=== PATIENT | male | born 1985 | race African-American/Black ===

== ENCOUNTER 2017-04-06 04:23 | Emergency (ER) | payer OTHER, MEDICAID ==
[~2017-04-06] VITALS: Ht 182.9 cm; Wt 72.6 kg
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
--- NOTE | 2017-04-06 04:30 | NUR ---
18G RIGHT AC IV STARTED, BLOOD SAMPLE OBTAINED AND SENT TO LAB
--- NOTE | 2017-04-06 04:36 | NUR ---
ADMIN 1000ML NS ORDERED BY MD PATEL
[2017-04-06 04:46] LABS: BASOPHILS % (AUTO) 0.7 % (0.0-2.0); EOSINOPHILS # (AUTO) 0.2 /CMM (0.0-0.7); EOSINOPHILS % (AUTO) 3.7 % (0.0-6.0); HEMATOCRIT 39 % (39-51); HEMOGLOBIN 12.8 g/dL (13.5-17.5); LYMPHOCYTES # (AUTO) 2.3 /CMM (0.8-4.8); MEAN CORPUSCULAR HEMOGLOBIN 30 PG (26.0-33.0); MEAN CORPUSCULAR HGB CONC 33 g/dl (31.0-36.0); MEAN CORPUSCULAR VOLUME 90 fL (80-96); MONOCYTES # (AUTO) 0.4 /CMM (0.1-1.30); MONOCYTES % (AUTO) 8.4 % (2.0-12.0); NEUTROPHILS # (AUTO) 1.9 /CMM (1.8-8.9); NEUTROPHILS % (AUTO) 39.2 % (43.0-81.0); PLATELET COUNT (AUTO) 196 /CMM (150-450); RDW COEFFICIENT OF VARIATION 14.1 (11.5-15.0); RED BLOOD CELL COUNT(AUTO) 4.33 MIL/uL (4.5-6.0); WHITE BLOOD COUNT (AUTO) 4.8 K/uL (4.3-11.0)
[2017-04-06 04:50] LABS: APPEARANCE,URINE CLEAR (CLEAR); BILIRUBIN,URINE NEGATIVE (NEGATIVE); BLOOD, URINE NEGATIVE Ery/uL (NEGATIVE); COLOR,URINE YELLOW (YELLOW); KETONES,URINE NEGATIVE (NEGATIVE); LEUKOCYTE ESTERASE ,URINE NEGATIVE (NEGATIVE); NITRITE, URINE NEGATIVE (NEGATIVE); PH,URINE 5.5 (5.0-8.0); PROTEIN,URINE NEGATIVE (NEGATIVE); UGLUCOSE NEGATIVE (NEGATIVE); UROBILINOGEN,URINE 0.2 EU/dL (0.2)
[2017-04-06 04:56] LABS: CALCIUM, SERUM 8.1 mg/dL (8.5-10.1); CREATININE 0.8 mg/dL (0.6-1.3); POTASSIUM 3.6 mmol/L (3.5-5.1)
[2017-04-06 05:03] LABS: ALBUMIN 3.6 g/dL (3.4-5.0); BILIRUBIN,DIRECT 0.1 mg/dL (0.0-0.2); BILIRUBIN,TOTAL 0.3 mg/dL (0.2-1.0); SALICYLATE 1.3 mg/dL (2.8-20.0); TOTAL PROTEIN, SERUM 7.1 g/dL (6.4-8.2)
[2017-04-06] MEDS ORDERED: IV NS 0.9% 1,000 ML BAG IV ONE (05:30)
--- NOTE | 2017-04-06 06:10 | NUR ---
patient resting in er bed, nad noted, skin warm and dry. pt is on clinical research monitor. will continue to monitor
--- NOTE | 2017-04-06 09:19 | NUR ---
MARCUS NIXON CALLED FOR EVAL
--- NOTE | 2017-04-06 10:30 | NUR ---
ALBA NIXON AT FOR NILAM. Addendum: 04/06/17 at 1129 by JOSE L MARCUS
--- NOTE | 2017-04-06 11:50 | NUR ---
IV removed. Catheter intact and site benign. Pressure and 4x4 applied to site. No bleeding noted.
--- NOTE | 2017-04-06 12:20 | NUR ---
Patient discharged to home in stable condition. Written and verbal after care instructions given. Patient verbalizes understanding of instruction. Pt ambulatory with a steady gait.
[2017-04-06 12:43] VITALS: BP 110/76
== END 2017-04-06 12:43 | disposition home or self-care (01) ==
LOC: ER 04:24
DX: F19.10 Other psychoactive substance abuse, uncomplicated (principal); E87.0 Hyperosmolality and hypernatremia; R41.82 Altered mental status, unspecified
CPT/HCPCS: 36415; 70450-TC; 80048-TC; 80076-TC; 80305; 81000-TC; 84484-TC; 85025-TC; A4606; G0480; J7030; Z7610

== ENCOUNTER 2017-04-27 22:32 | Emergency (ER) | payer MEDICAID ==
[~2017-04-27] VITALS: Ht 180.3 cm; Wt 74.8 kg
[2017-04-27 22:50] VITALS: BP 117/57
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
--- NOTE | 2017-04-27 22:50 | NUR ---
DR. PATEL AT BEDSIDE FOR EVAL.
--- NOTE | 2017-04-27 23:05 | NUR ---
LAB AT BEDSIDE FOR BLOOD DRAW.
[2017-04-27 23:20] LABS: BASOPHILS # (AUTO) 0.1 /CMM (0.0-0.2); BASOPHILS % (AUTO) 1.2 % (0.0-2.0); EOSINOPHILS # (AUTO) 0.2 /CMM (0.0-0.7); EOSINOPHILS % (AUTO) 2.7 % (0.0-6.0); HEMATOCRIT 43 % (39-51); HEMOGLOBIN 14.1 g/dL (13.5-17.5); LYMPHOCYTES # (AUTO) 1.8 /CMM (0.8-4.8); LYMPHOCYTES % (AUTO) 31.3 % (20.0-44.0); MEAN CORPUSCULAR HEMOGLOBIN 30 PG (26.0-33.0); MEAN CORPUSCULAR HGB CONC 33 g/dl (31.0-36.0); MEAN CORPUSCULAR VOLUME 90 fL (80-96); MONOCYTES # (AUTO) 0.5 /CMM (0.1-1.30); MONOCYTES % (AUTO) 9.3 % (2.0-12.0); NEUTROPHILS # (AUTO) 3.1 /CMM (1.8-8.9); NEUTROPHILS % (AUTO) 55.5 % (43.0-81.0); PLATELET COUNT (AUTO) 216 /CMM (150-450); RDW COEFFICIENT OF VARIATION 14.3 (11.5-15.0); RED BLOOD CELL COUNT(AUTO) 4.76 MIL/uL (4.5-6.0); WHITE BLOOD COUNT (AUTO) 5.6 K/uL (4.3-11.0)
[2017-04-27 23:25] LABS: CALCIUM, SERUM 8.7 mg/dL (8.5-10.1); CREATININE 0.7 mg/dL (0.6-1.3); POTASSIUM 3.6 mmol/L (3.5-5.1)
== END 2017-04-27 23:41 | disposition home or self-care (01) ==
LOC: ER 22:32
DX: Z00.8 Encounter for other general examination (principal); R79.89 Other specified abnormal findings of blood chemistry
CPT/HCPCS: 36415; 80048; 85025; 99284; A4606; Z7610

== ENCOUNTER 2018-01-11 18:16 | Emergency (ER) | payer MEDICAID ==
[~2018-01-11] VITALS: Ht 177.8 cm; Wt 79.4 kg
[2018-01-11 18:22] VITALS: BP 152/93
[2018-01-11] MEDS ORDERED: IBUPROFEN 600 MG TABLET PO ONE ×2 (19:00→19:03)
== END 2018-01-11 20:55 | disposition home or self-care (01) ==
LOC: ER 18:18
DX: J06.9 Acute upper respiratory infection, unspecified (principal); B35.1 Tinea unguium; F17.200 Nicotine dependence, unspecified, uncomplicated; Z59.0 Homelessness; Z60.2 Problems related to living alone
CPT/HCPCS: 71045; 99283; A4606; Z7610

== ENCOUNTER 2018-01-17 01:58 | Emergency (ER) | payer MEDICAID ==
[~2018-01-17] VITALS: Ht 175.3 cm; Wt 74.8 kg
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
--- NOTE | 2018-01-17 02:00 | NUR ---
PT STATED THAT HE WAS UNABLE TO GIVE A URINE SAMPLE. PT REFUSED A WATTS.
[2018-01-17] MEDS ORDERED: ONDANSETRON 4 MG TAB.RAPDIS ONE (02:21)
[2018-01-17] MEDS ORDERED: HYDROCODONE/APAP 10/325MG 1 EA TABLET ONE (02:21)
[2018-01-17] MEDS ORDERED: ONDANSETRON 4 MG TAB.RAPDIS SL ONE (02:30)
[2018-01-17] MEDS ORDERED: HYDROCODONE/APAP 10/325MG 1 EA TABLET PO ONE (02:30)
--- NOTE | 2018-01-17 02:41 | NUR ---
PT OFF TO CT
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
--- NOTE | 2018-01-17 02:57 | NUR ---
PT RETURNED FROM CT.
--- NOTE | 2018-01-17 02:58 | NUR ---
PT ASKED IF WE STILL NEEDED A URINE SAMPLE. PT WAS TOLD THAT WE STILL DO. PT WAS GIVEN A URINAL.
--- NOTE | 2018-01-17 03:03 | NUR ---
PT REC'D A SANDWICH, 2 JUICE BOXES, AND JELLO.
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
--- NOTE | 2018-01-17 03:10 | NUR ---
Cathy sevilla in [facility] - 01/17/18 at 0316 by OLIVIER 1ST UNIT OF BLOOD FINISHED TRANFUSING.
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
[2018-01-17 04:28] VITALS: BP 110/65
== END 2018-01-17 04:29 | disposition home or self-care (01) ==
LOC: ER 02:01
DX: S09.8XXA Other specified injuries of head, initial encounter (principal); R51 Headache; R42 Dizziness and giddiness; R11.0 Nausea; F15.10 Other stimulant abuse, uncomplicated; H54.40 Blindness, one eye, unspecified eye; F17.200 Nicotine dependence, unspecified, uncomplicated; Z60.2 Problems related to living alone; W22.8XXA Striking against or struck by other objects, initial encounter; Y93.89 Activity, other specified; Y92.89 Other specified places as the place of occurrence of the external cause; Y99.8 Other external cause status
CPT/HCPCS: 70450; 99284; A4606; Q0162; Z7610

== ENCOUNTER 2018-08-16 18:07 | Emergency (ER) | payer MEDICAID ==
[~2018-08-16] VITALS: Ht 172.7 cm; Wt 68.0 kg
[2018-08-16 18:31] VITALS: BP 134/89
--- NOTE | 2018-08-16 19:48 | NUR ---
PT CALLED TO RM, NO ANSWER.
--- NOTE | 2018-08-16 19:56 | NUR ---
2ND CALL FOR PT, NO ANSWER.
--- NOTE | 2018-08-16 20:11 | NUR ---
3RD CALL FOR PT. NO ANSWER. LWBS.
== END 2018-08-16 20:13 | disposition left against medical advice (07) ==
LOC: ER 18:13
DX: M79.673 Pain in unspecified foot (principal); Z59.0 Homelessness; Z53.21 Procedure and treatment not carried out due to patient leaving prior to being seen by health care provider
CPT/HCPCS: A4606; Z7610

== ENCOUNTER 2018-08-28 15:58 | Emergency (ER) | payer MEDICAID ==
[~2018-08-28] VITALS: Ht 182.9 cm; Wt 82.1 kg
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
--- NOTE | 2018-08-28 19:12 | NUR ---
REPORT GIVEN TO LOREE GARCIA FOR JIA.
--- NOTE | 2018-08-28 19:50 | NUR ---
Patient discharged to home in stable condition. Written and verbal after care instructions given. Patient verbalizes understanding of instruction. pt. ambulatory with a steady gait
[2018-08-28 19:58] VITALS: BP 120/65
== END 2018-08-28 19:59 | disposition home or self-care (01) ==
LOC: ER 16:02
DX: F10.129 Alcohol abuse with intoxication, unspecified (principal); R41.82 Altered mental status, unspecified; F17.200 Nicotine dependence, unspecified, uncomplicated; Z59.0 Homelessness; Z60.2 Problems related to living alone; Y90.9 Presence of alcohol in blood, level not specified
CPT/HCPCS: 82962; 99283; A4606; Z7610

== ENCOUNTER 2018-09-21 05:09 | Emergency (ER) | payer MEDICAID ==
[~2018-09-21] VITALS: Ht 180.3 cm; Wt 76.7 kg
--- NOTE | 2018-09-21 05:20 | NUR ---
Pt came in due to cough x 4 weeks,, denies any fever, diarrhea, N/V. Pt's both eyes appear red, lungs clear to auscultation. He is A, O/4, on RA, moves all extremities unaided.
[2018-09-21 05:53] VITALS: BP 124/76
--- NOTE | 2018-09-21 05:54 | NUR ---
Patient discharged to home in stable condition. Written and verbal after care instructions and prescription given. Patient verbalizes understanding of instruction. Pt ambulatory with a steady gait, VSS.
== END 2018-09-21 05:54 | disposition home or self-care (01) ==
LOC: ER 05:09
DX: R05 Cough (principal); F17.200 Nicotine dependence, unspecified, uncomplicated; Z60.2 Problems related to living alone
CPT/HCPCS: 71045-TC

== ENCOUNTER 2018-10-12 22:38 | Emergency (ER) | payer MEDICAID ==
--- NOTE | 2018-10-12 22:47 | NUR ---
Pt called for triage, no answer.
--- NOTE | 2018-10-12 22:53 | NUR ---
2nd call for pt, no answer.
--- NOTE | 2018-10-12 23:07 | NUR ---
3rd call for pt. no answer.
== END 2018-10-12 23:10 | disposition left against medical advice (07) ==
LOC: ER 22:44
DX: Z53.21 Procedure and treatment not carried out due to patient leaving prior to being seen by health care provider (principal)

== ENCOUNTER 2019-01-20 04:54 | Emergency (ER) | payer MEDICAID ==
--- NOTE | 2019-01-20 05:02 | NUR ---
CALLED PT THREE TIMES. NO RESPONSE IN WAITING ROOM.
--- NOTE | 2019-01-20 05:36 | NUR ---
CALLED PT THREE TIMES. NO RESPONSE IN WAITING ROOM.
--- NOTE | 2019-01-20 06:04 | NUR ---
CALLED PT THREE TIMES. NO RESPONSE IN WAITING ROOM.
== END 2019-01-20 06:09 | disposition home or self-care (01) ==
LOC: ER 05:00
DX: Z53.21 Procedure and treatment not carried out due to patient leaving prior to being seen by health care provider (principal)